=== PATIENT | female | born 1960 | race Caucasian/White ===

== ENCOUNTER 2017-03-09 09:13 | Emergency (ER) | payer MEDICAID, MEDICARE, SELFPAY ==
[~2017-03-09] VITALS: Ht 172.7 cm; Wt 136.4 kg
[2017-03-09] MEDS ORDERED: ETOD400T PO (09:24)
[2017-03-09] MEDS ORDERED: LISI-538 PO (09:24)
[2017-03-09] MEDS ORDERED: HYDR-3713 (09:24)
[2017-03-09] MEDS ORDERED: SERT-138 PO (09:24)
[2017-03-09] MEDS ORDERED: AUGM875T28 PO (09:42)
[2017-03-09] MEDS ORDERED: ADACEL/BOOSTRIX VACCINE (DIPHTH/PERTUSS/ACELL/TETANUS)0.5ML SYR (90715) IM ONE (09:45)
[2017-03-09 09:59] VITALS: BP 179/86
== END 2017-03-09 10:04 | disposition home or self-care (01) ==
LOC: M ED 09:13
DX: S40.871A Other superficial bite of right upper arm, initial encounter (principal); W54.0XXA Bitten by dog, initial encounter; Y92.018 Other place in single-family (private) house as the place of occurrence of the external cause; Y99.9 Unspecified external cause status; Y93.9 Activity, unspecified; Z88.2 Allergy status to sulfonamides; Z91.041 Radiographic dye allergy status; Z91.030 Bee allergy status; Z79.899 Other long term (current) drug therapy; Z23 Encounter for immunization

== ENCOUNTER 2017-04-16 22:24 | Emergency (ER) | payer MEDICAID, SELFPAY ==
[~2017-04-16] VITALS: Ht 170.2 cm; Wt 136.4 kg
[~2017-04-16 22:24] MED LIST: AUGM875T28 PO; ETOD400T PO; HYDR-3713; LISI-538 PO; SERT-138 PO
[2017-04-17] MEDS ORDERED: NEUR300C PO (00:29)
[2017-04-17] MEDS ORDERED: VALT1TAB PO (00:29)
[2017-04-17] MEDS ORDERED: GABAPENTIN 400 MG CAP PO ONE (00:30)
[2017-04-17] MEDS ORDERED: hydrOXYzine 25 MG TAB PO ONE (00:30)
[2017-04-17] MEDS ORDERED: valACYclovir HCL 500 MG TAB PO ONE (00:30)
[2017-04-17 00:39] VITALS: BP 173/83
[2017-04-17] MEDS ORDERED: GABAPENTIN 300 MG CAP PO ONE (00:45)
== END 2017-04-17 01:06 | disposition home or self-care (01) ==
LOC: M ED 22:24
DX: B02.9 Zoster without complications (principal); M32.9 Systemic lupus erythematosus, unspecified; Z79.899 Other long term (current) drug therapy; Z91.030 Bee allergy status; Z88.5 Allergy status to narcotic agent; Z88.2 Allergy status to sulfonamides; Z91.041 Radiographic dye allergy status

== ENCOUNTER → 2017-07-26 | Outpatient (CLI) | payer MEDICAID | LOC: M RAD 15:34 | DX: N63.11 Unspecified lump in the right breast, upper outer quadrant (principal); Z85.3 Personal history of malignant neoplasm of breast | CPT/HCPCS: 77066 ==

== ENCOUNTER → 2017-07-29 | Outpatient (REF) | payer MEDICAID, MEDICARE | LOC: M SFHCWAGY 16:19 | DX: N84.1 Polyp of cervix uteri (principal) | CPT/HCPCS: 88305 ==

== ENCOUNTER → 2017-08-16 | Outpatient (CLI) | payer MEDICAID ==
[~2017-08-16] MED LIST changes: -AUGM875T28 PO; -ETOD400T PO; -HYDR-3713; +LIDOCAINE 1% MDV 20ML VIAL As Ordered; -LISI-538 PO; -SERT-138 PO
== END ==
LOC: M RADPRO 12:05
DX: D24.1 Benign neoplasm of right breast (principal); Z79.899 Other long term (current) drug therapy; Z88.8 Allergy status to other drugs, medicaments and biological substances; Z91.041 Radiographic dye allergy status
CPT/HCPCS: 19083

== ENCOUNTER 2017-11-05 13:56 | Emergency (ER) | payer MEDICAID, MEDICARE | END 2017-11-05 15:37 | disposition home or self-care (01) | LOC: M ED 13:56 | DX: S76.011A Strain of muscle, fascia and tendon of right hip, initial encounter (principal); W19.XXXA Unspecified fall, initial encounter; Y92.099 Unspecified place in other non-institutional residence as the place of occurrence of the external cause; Y93.9 Activity, unspecified; Y99.9 Unspecified external cause status; I10 Essential (primary) hypertension; M06.9 Rheumatoid arthritis, unspecified; K21.9 Gastro-esophageal reflux disease without esophagitis; Z79.899 Other long term (current) drug therapy; Z91.030 Bee allergy status; Z91.041 Radiographic dye allergy status; Z88.2 Allergy status to sulfonamides; Z88.5 Allergy status to narcotic agent | CPT/HCPCS: 73502 ==

== ENCOUNTER → 2018-07-06 | Outpatient (REF) | payer MEDICARE, MEDICAID ==
[~2018-07-06] MED LIST changes: +AUGM875T28 PO; +ETOD400T PO; +HYDR-3713; +HYDR200T3 PO; -LIDOCAINE 1% MDV 20ML VIAL As Ordered; +LISI-538 PO; +NEUR300C PO; +SERT-138 PO; +VALT1TAB PO; +VOLT1GEL15 TD
[2018-07-06 15:43] LABS: BASO # 0.1 10^3/uL (0.0-0.2); EOS # 0.2 10^3/uL (0.0-0.50); HEMOGLOBIN 15.3 g/dl (12.0-15.5); LYMPH # 1.6 10^3/uL (1.5-4.5); LYMPH % 27.5 % (24.0-44.0); MEAN CORPUSCULAR HEMOGLOBIN 28.3 pg (27.0-33.0); MEAN CORPUSCULAR HGB CONC 31.9 g/dl (32.0-36.5); MEAN CORPUSCULAR VOLUME 88.7 fl (80.0-96.0); MONO # 0.4 10^3/uL (0.0-0.8); NEUTROPHILS # 3.5 10^3/uL (1.8-7.7); NEUTROPHILS % 61.2 % (36.0-66.0); PLATELET COUNT, AUTOMATED 220 10^3/uL (150-450); RED BLOOD COUNT 5.41 10^6/uL (4.00-5.40); WHITE BLOOD COUNT 5.8 10^3/uL (4.0-10.0)
[2018-07-06 15:45] LABS: APPEARANCE, URINE HAZY (CLEAR); BACTERIA, URINE AUTO NEGATIVE (NEGATIVE); BILIRUBIN, URINE AUTO NEGATIVE (NEGATIVE); BLOOD, URINE BLOOD NEGATIVE (NEGATIVE); COLOR, URINE STRAW (YELLOW); GLUCOSE, URINE (UA) AUTO NEGATIVE (NEGATIVE); KETONE, URINE AUTO NEGATIVE (NEGATIVE); LEUKOCYTE ESTERASE, URINE AUTO 2+ (NEGATIVE); NITRITE, URINE AUTO NEGATIVE (NEGATIVE); PROTEIN, URINE AUTO NEGATIVE (NEGATIVE); RBC, URINE AUTO 2 /HPF (0-3); SPECIFIC GRAVITY URINE AUTO 1.008 (1.002-1.035); SQUAMOUS EPITHELIAL CELL UR AU 4 /HPF (0-6); TRANSITIONAL EPITHELIAL AUTO 1 /HPF; UROBILINOGEN, URINE AUTO 0.2 mg/dL (0.0-2.0); WBC, URINE AUTO 7 /HPF (0-3)
[2018-07-06 15:54] LABS: CREATININE,RANDOM URINE 47.2 MG/DL; TOTAL PROTEIN,RANDOM URINE < 5.0 MG/DL (0.0-12.0)
[2018-07-06 16:10] LABS: ALBUMIN 3.7 GM/DL (3.2-5.2); ALT/SGPT 19 U/L (12-78); BILIRUBIN,TOTAL 0.5 MG/DL (0.2-1.0); BLOOD UREA NITROGEN 10 MG/DL (7-18); C REACTIVE PROTEIN QUANTITATIV < 0.30 MG/DL (0.00-0.30); CALCIUM LEVEL 8.7 MG/DL (8.5-10.1); CARBON DIOXIDE LEVEL 29 MEQ/L (21-32); CHLORIDE LEVEL 103 MEQ/L (98-107); COMPLEMENT C3 148 MG/DL (90-180); COMPLEMENT C4 38 MG/DL (10-40); CREATININE FOR GFR 0.71 MG/DL (0.55-1.30); GLOMERULAR FILTRATION RATE > 60.0 (>51); GLUCOSE, FASTING 76 MG/DL (70-100); POTASSIUM SERUM 4.1 MEQ/L (3.5-5.1); RHEUMATOID FACTOR QUANT < 10.0 IU/ML (<15.0); SODIUM LEVEL 139 MEQ/L (136-145); TOTAL PROTEIN 7.1 GM/DL (6.4-8.2)
[2018-07-06 16:12] LABS: TOTAL 25(OH) VITAMIN D 9.4 NG/ML (30.0-100.0)
[2018-07-06 18:56] LABS: ERYTHROCYTE SEDIMENTATION RATE 9 mm/hr (0-30)
[2018-07-09 11:38] LABS: ANA (HEP2) Positive (.); ANTI DOUBLE STRAND-DNA AB 1 IU/mL (0-9); BETA-2 GLYCOPROTEIN I ABY IGA <9 (0-25); BETA-2 GLYCOPROTEIN I ABY IGG <9 (0-20); BETA-2 GLYCOPROTEIN I ABY IGM <9 (0-32); CARDIOLIPIN IGA ANTIBODY <9 APL U/mL (0-11); CARDIOLIPIN IGG ANTIBODY <9 GPL U/mL (0-14); CARDIOLIPIN IGM ANTIBODY <9 MPL U/mL (0-12); CYCLIC CITRULLINATED PEPTIDE 6 units (0-19); SMITHS ANTIBODY < 0.2 AI (0.0-0.9); SSA SJOGRENS A <0.2 AI (0.0-0.9); SSB SJOGRENS B <0.2 AI (0.0-0.9)
[2018-07-19 10:47] LABS: DRVV SCREEN 44.2 SEC
[2018-07-19 10:48] LABS: PTT LUPUS TYPE ANTICOAG SCREEN 1.1 (0-1.2)
== END ==
LOC: M SFHCPLAZ 12:09
PROVIDERS: ATTEND Internal Medicine Rheumatology
DX: R76.8 Other specified abnormal immunological findings in serum (principal); R21 Rash and other nonspecific skin eruption; E66.01 Morbid (severe) obesity due to excess calories; Z68.42 Body mass index [BMI] 45.0-49.9, adult; R79.89 Other specified abnormal findings of blood chemistry
CPT/HCPCS: 36415; 80053; 81001; 82306; 82570; 84156; 84443; 85025; 85652; 85730; 86038; 86140; 86146; 86147; 86160; 86200; 86225; 86235; 86255; 86431; G0463

== ENCOUNTER → 2018-10-06 | Outpatient (REF) | payer MEDICARE, MEDICAID | LOC: M SFHCPLAZ 18:35 | PROVIDERS: ATTEND Dermatology | DX: L28.0 Lichen simplex chronicus (principal); R21 Rash and other nonspecific skin eruption ==

== ENCOUNTER → 2018-10-20 | Outpatient (REF) | payer MEDICARE ==
[2018-10-21 14:34] LABS: HEPATITIS C VIRUS ABY INDEX < 0.0 INDEX (<0.8); HIV 1&2 SCREEN CENTAUR NEGATIVE (NEGATIVE)
== END ==
LOC: M SFHCPLAZ 09:18
PROVIDERS: ATTEND Dermatology
DX: R21 Rash and other nonspecific skin eruption (principal)

== ENCOUNTER → 2019-03-14 | Outpatient (REF) | payer MEDICARE ==
[2019-03-14 13:45] LABS: FREE T4 0.91 NG/DL (0.76-1.46); TOTAL PROTEIN 6.8 GM/DL (6.4-8.2)
[2019-03-14 13:47] LABS: VITAMIN B12 LEVEL 389 PG/ML
[2019-03-14 13:48] LABS: FOLATE 11.9 NG/ML
[2019-03-14 14:10] LABS: HEMOGLOBIN A1c 5.2 %
[2019-03-16 09:14] LABS: ALBUMIN 3.85 GM/DL (3.29-5.55); ALBUMIN % 56.6 % (55.8-66.1); ALPHA-1-GLOBULIN % 4.8 % (2.9-4.9); ALPHA-1-GLOBULINS 0.33 GM/DL (0.17-0.41); ALPHA-2-GLOBULINS % 11.8 % (7.1-11.8); BETA-1-GLOBULINS 0.42 GM/DL (0.28-0.60); BETA-1-GLOBULINS % 6.2 % (4.7-7.2); BETA-2-GLOBULINS 0.41 GM/DL (0.19-0.55); BETA-2-GLOBULINS % 6.1 % (3.2-6.5); GAMMA GLOBULIN % 14.5 % (11.1-18.8); GAMMA GLOBULINS 0.99 GM/DL (0.65-1.58)
[2019-03-18 15:57] LABS: SSA SJOGRENS A <0.2 AI (0.0-0.9); SSB SJOGRENS B <0.2 AI (0.0-0.9); VITAMIN B1 LEVEL WHOLE BLOOD 127.2 nmol/L (66.5-200.0); VITAMIN B6,PYRIDOXAL PHOSPHATE 3.9 ug/L (2.0-32.8); VITAMIN E(ALPHA TOCOPHEROL) 11.8 mg/L (9.0-29.0); VITAMIN E(GAMMA TOCOPHEROL) 3.8 mg/L (0.5-4.9)
== END ==
LOC: M LABNEURO 09:09
PROVIDERS: ATTEND Psychiatry & Neurology Neurology
DX: E11.40 Type 2 diabetes mellitus with diabetic neuropathy, unspecified (principal); E07.9 Disorder of thyroid, unspecified

== ENCOUNTER → 2019-06-22 | Outpatient (CLI) | payer MEDICARE ==
--- NOTE | 2019-06-22 09:54 | REP ---
BILATERAL SCREENING DIGITAL MAMMOGRAM WITH 3D TOMOSYNTHESIS: There are no palpable abnormalities or other breast complaints. The the patient states she had a clinical breast examination the 2018. The the patient states she performs self-breast examinations the 12 times per year. The Tyrer-Cuzick Score is: NA. Comparison is 07/26/2017. There are no other comparisons available. The patient has a history of right breast carcinoma in 2005, treated with lumpectomy and chemo radiation. 07/2017 she complained of a palpable lump in the upper outer quadrant of the right breast. The mammogram on 07/26/2017 identified a spiculated mass in the upper outer quadrant of the right breast. She had an ultrasound-guided right breast biopsy on 08/16/2017. The biopsy was negative for carcinoma. There are scattered areas of fibroglandular density. There is a spiculated mass in the upper outer quadrant of the right breast, similar to the 07/26/2017 mammogram. There is a biopsy marking clip adjacent to this mass, not present on 07/26/2017. There is no other dominant mass, micro calcific cluster or architectural distortion that would indicate malignancy. There are no additional findings on 3D tomosynthesiss. There is no other change from the prior study. Impression: BIRADS/ACR category II mammogram. Benign findings. The right upper outer quadrant spiculated mass is likely a surgical scar. The biopsy was negative for malignancy. Recommendation: Routine annual screening mammography. This mammogram was interpreted with the aid of a FDA approved computer-aided detection system. A. Negative mammogram reports should not delay biopsy if a dominant or clinically suspicious mass is present. B. Not all breast cancers are identified by mammography or tomosynthesis. C. Adenosis and dense breasts may obscure an underlying neoplasm. Patient letter M1. Electronically Signed by Robb Urias MD 06/22/2019 09:46 A
== END ==
LOC: M WHC 06:37
PROVIDERS: ATTEND Nurse Practitioner
DX: Z12.31 Encounter for screening mammogram for malignant neoplasm of breast (principal); Z85.3 Personal history of malignant neoplasm of breast; Z92.21 Personal history of antineoplastic chemotherapy; N63.11 Unspecified lump in the right breast, upper outer quadrant

== ENCOUNTER → 2020-07-05 | Outpatient (REF) | payer MEDICARE ==
[~2020-07-05] MED LIST changes: -LISI-538 PO; +LISI20TA33 PO
[2020-07-05 14:02] LABS: APPEARANCE, URINE CLEAR (CLEAR); BACTERIA, URINE AUTO NEGATIVE (NEGATIVE); BILIRUBIN, URINE AUTO NEGATIVE (NEGATIVE); BLOOD, URINE BLOOD NEGATIVE (NEGATIVE); COLOR, URINE STRAW (YELLOW); GLUCOSE, URINE (UA) AUTO NEGATIVE (NEGATIVE); KETONE, URINE AUTO NEGATIVE (NEGATIVE); LEUKOCYTE ESTERASE, URINE AUTO TRACE (NEGATIVE); MUCUS, URINE SMALL (NEGATIVE); NITRITE, URINE AUTO NEGATIVE (NEGATIVE); PROTEIN, URINE AUTO NEGATIVE (NEGATIVE); RBC, URINE AUTO 1 /HPF (0-3); SPECIFIC GRAVITY URINE AUTO 1.009 (1.002-1.035); SQUAMOUS EPITHELIAL CELL UR AU 3 /HPF (0-6); UROBILINOGEN, URINE AUTO 0.2 mg/dL (0.0-2.0); WBC, URINE AUTO 6 /HPF (0-3)
== END ==
LOC: M SMT 13:46
PROVIDERS: ATTEND Nurse Practitioner Women's Health
DX: R39.15 Urgency of urination (principal)
CPT/HCPCS: 51798; 81001; 87088; 87186; G0463

== ENCOUNTER → 2020-09-10 | Outpatient (REF) | payer MEDICARE ==
[2020-09-10 13:54] LABS: APPEARANCE, URINE CLEAR (CLEAR); BACTERIA, URINE AUTO 1+ (NEGATIVE); BILIRUBIN, URINE AUTO NEGATIVE (NEGATIVE); BLOOD, URINE BLOOD NEGATIVE (NEGATIVE); COLOR, URINE YELLOW (YELLOW); GLUCOSE, URINE (UA) AUTO NEGATIVE (NEGATIVE); KETONE, URINE AUTO NEGATIVE (NEGATIVE); LEUKOCYTE ESTERASE, URINE AUTO TRACE (NEGATIVE); MUCUS, URINE SMALL (NEGATIVE); NITRITE, URINE AUTO NEGATIVE (NEGATIVE); PROTEIN, URINE AUTO NEGATIVE (NEGATIVE); RBC, URINE AUTO 0 /HPF (0-3); SPECIFIC GRAVITY URINE AUTO 1.008 (1.002-1.035); SQUAMOUS EPITHELIAL CELL UR AU 0 /HPF (0-6); UROBILINOGEN, URINE AUTO 0.2 mg/dL (0.0-2.0); WBC, URINE AUTO 7 /HPF (0-3)
== END ==
LOC: M SMT 12:29
PROVIDERS: ATTEND Nurse Practitioner Women's Health
DX: R30.0 Dysuria (principal)
CPT/HCPCS: 81001; 87088; 87186; G0463

== ENCOUNTER → 2020-09-20 | Outpatient (CLI) | payer MEDICARE ==
--- NOTE | 2020-09-20 11:24 | REP ---
INDICATION: URGENCY OF URINATION, HX UTI'S. COMPARISON: None. TECHNIQUE: Real-time sonographic evaluation of the kidneys is performed. FINDINGS: Renal cortical echogenicity pattern is normal bilaterally and contours are smooth. There is no evidence of hydronephrosis, cyst, mass, or calculus in either kidney. The right kidney measures 10.1 x 5.4 x 5.0 cm. Left renal dimensions are 10.8 x 5.6 x 5.3 cm. IMPRESSION: Negative renal ultrasound. <Electronically signed by Robb Suarez > 09/20/20 [id number]
--- NOTE | 2020-09-20 11:26 | REP ---
INDICATION: URGENCY OF URINATION, HX UTI'S. COMPARISON: None. TECHNIQUE: Real-time sonographic evaluation of urinary bladder performed. FINDINGS: The bladder measures 7.7 x 8.9 x 4.4 cm for total volume of 197 cc. There is no bladder wall thickening or mass. No intraluminal calculus is seen. Postvoid residual is 12 cc which is 6% of the original volume. IMPRESSION: No bladder mass or calculus. Postvoid residual 6%. <Electronically signed by Robb Suarez > 09/20/20 [id number]
== END ==
LOC: M RAD 10:29
PROVIDERS: ATTEND Nurse Practitioner Women's Health
DX: R39.15 Urgency of urination (principal); Z87.440 Personal history of urinary (tract) infections

== ENCOUNTER → 2023-01-05 | Outpatient (CLI) | payer MEDICARE ==
[~2023-01-05] MED LIST changes: +ETOD-173 PO; -ETOD400T PO; -HYDR200T3 PO; +HYDR200T46 PO
== END ==
LOC: M WHC 08:09
PROVIDERS: ATTEND Advanced Practice Midwife
DX: Z12.31 Encounter for screening mammogram for malignant neoplasm of breast (principal); Z85.3 Personal history of malignant neoplasm of breast

== ENCOUNTER → 2023-01-05 | Outpatient (REF) | payer MEDICARE | LOC: M SFHCWAGY 10:49 | PROVIDERS: ATTEND Advanced Practice Midwife | DX: Z12.4 Encounter for screening for malignant neoplasm of cervix (principal); N95.2 Postmenopausal atrophic vaginitis | CPT/HCPCS: 87624; G0123 ==

== ENCOUNTER → 2023-04-20 | Outpatient (CLI) | payer MEDICARE ==
[~2023-04-20] MED LIST changes: +ONDA4TAB6 PO
== END ==
LOC: M WUC 14:01
PROVIDERS: ATTEND Family Medicine
DX: R05.9 Cough, unspecified (principal)

== ENCOUNTER 2023-04-21 16:32 | Emergency (ER) | payer MEDICARE ==
[~2023-04-21] VITALS: Ht 170.2 cm; Wt 91.1 kg
[~2023-04-21 16:32] MED LIST changes: -ONDA4TAB6 PO
[2023-04-21 16:34] VITALS: TEMP 99
[2023-04-21 17:52] LABS: BASO % 0.4 % (0.0-1.0); EOS % 0.6 % (0.0-3.0); HEMATOCRIT 50.4 % (36.0-47.0); HEMOGLOBIN 16.7 g/dl (12.0-15.5); LYMPH # 0.9 10^3/uL (1.5-5.0); LYMPH % 12.7 % (24.0-44.0); MEAN CORPUSCULAR HEMOGLOBIN 28.8 pg (27.0-33.0); MEAN CORPUSCULAR HGB CONC 33.1 g/dl (32.0-36.5); MEAN CORPUSCULAR VOLUME 86.9 fl (80.0-96.0); MONO # 0.4 10^3/uL (0.0-0.8); MONO % 6.2 % (2.0-8.0); NEUTROPHILS # 5.4 10^3/uL (1.5-8.5); NEUTROPHILS % 79.7 % (36.0-66.0); PLATELET COUNT, AUTOMATED 184 10^3/uL (150-450); WHITE BLOOD COUNT 6.8 10^3/uL (4.0-10.0)
[2023-04-21 18:02] LABS: CK-MB VALUE MASS < 1.0 NG/ML (<3.6); LIPASE 42 U/L (12-53)
[2023-04-21 18:05] LABS: ALBUMIN 3.9 G/DL (3.2-5.2); ALKALINE PHOSPHATASE 75 U/L (46-116); ALT/SGPT 14 U/L (7.0-40); AST/SGOT 15 U/L (<34); BILIRUBIN,DIRECT 0.2 MG/DL (<0.4); BILIRUBIN,TOTAL 0.8 MG/DL (0.3-1.2); BLOOD UREA NITROGEN 13 MG/DL (9-23); CALCIUM LEVEL 9.4 MG/DL (8.3-10.6); CARBON DIOXIDE LEVEL 29 MMOL/L (20-31); CHLORIDE LEVEL 102 MMOL/L (98-107); CPK CREATINE PHOSPHOKINASE 52 U/L (34-145); CREATININE FOR GFR 0.69 MG/DL (0.55-1.30); GLOMERULAR FILTRATION RATE > 60.0 (>45); GLUCOSE, FASTING 97 MG/DL (74-106); MAGNESIUM LEVEL 1.9 MG/DL (1.8-2.4); MB/CK RELATIVE INDEX 1.92 (< OR =4); POTASSIUM SERUM 4.4 MMOL/L (3.5-5.1); SODIUM LEVEL 142 MMOL/L (136-145); TOTAL PROTEIN 7.5 G/DL (5.7-8.2)
[2023-04-21 18:40] LABS: THYROID STIMULATING HORMONE 0.884 uIU/ML (0.55-4.78)
[2023-04-21] MEDS ORDERED: NS 500 ML IV ONE (19:55)
[2023-04-21] MEDS ORDERED: ONDANSETRON 4MG 2ML VIAL IV ONE (20:00)
[2023-04-21 20:45] VITALS: BP 158/81; O2SAT 98
[2023-04-21 20:46] LABS: CK-MB VALUE MASS < 1.0 NG/ML (<3.6)
[2023-04-21 20:50] LABS: CPK CREATINE PHOSPHOKINASE 58 U/L (34-145); MB/CK RELATIVE INDEX 1.72 (< OR =4)
[2023-04-21 21:26] LABS: RSV AMPLIFICATION NEGATIVE (NEGATIVE)
[2023-04-21] MEDS ORDERED: ONDA4TAB6 PO (22:50)
== END 2023-04-21 23:25 | disposition home or self-care (01) ==
LOC: M ED 16:32
DX: U07.1 COVID-19 (principal); I10 Essential (primary) hypertension; K21.9 Gastro-esophageal reflux disease without esophagitis; Z85.3 Personal history of malignant neoplasm of breast; M32.9 Systemic lupus erythematosus, unspecified; G62.9 Polyneuropathy, unspecified; Z91.041 Radiographic dye allergy status; Z88.2 Allergy status to sulfonamides; Z91.030 Bee allergy status; Z88.8 Allergy status to other drugs, medicaments and biological substances
CPT/HCPCS: 70450; 71045; 74176; 80048; 80076; 82550; 82553; 83690; 83735; 84443; 84484; 85025; 87631; 93005; 93041; 94760; 96374; 99285; J2405